=== PATIENT | female | born 1990 | race African-American/Black ===

== ENCOUNTER 2017-06-14 13:53 | Emergency (ER) | payer MEDICAID ==
[~2017-06-14] VITALS: Ht 160 cm; Wt 59.0 kg
[2017-06-14 14:02] VITALS: BP 100/66
== END 2017-06-14 16:44 | disposition left against medical advice (07) ==
LOC: ER 14:16
DX: Z04.3 Encounter for examination and observation following other accident (principal); Z53.21 Procedure and treatment not carried out due to patient leaving prior to being seen by health care provider